=== PATIENT | male | born 1995 | race Caucasian/White ===

== ENCOUNTER 2024-06-21 11:45 | Outpatient (AMB) | payer OTHER, SELFPAY ==
--- NOTE | 2024-06-21 11:48 | AM.OFFWIN_ITS ---
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 While every effort has been made to ensure accuracy, hotel services sales representative errors may have been included. The patient is a 29 year old male who presents to the clinic today with intermittent bilateral hand rash with swelling for the past 2 weeks, occurring in the morning. He denies fever, chills, cough, shortness of breath, injury to the area, any new soaps, lotions, perfumes, foods. He does note that he got a new blanket and did not wash it 1st, and did get this from [employer]. The area is described as red and blotchy, not itchy, or painful. He has not tried anything to make it better, as the symptoms seemed to resolve on their own as the day progresses. He does note that his mother has an autoimmune disorder, vitiligo. [facility]END[facility] S[facility] TO [facility] Social History Patient Tobacco Use Status: Current someday Tobacco user Review of Systems Const All systems reviewed & are unremarkable except as noted in HPI and below Physical Exam Vital Signs: Last Vital Signs Pulse 70 06/21/24 11:49 BP 110/78 06/21/24 11:49 Pulse Ox 98 06/21/24 11:49 Oxygen Delivery Method Room Air 06/21/24 11:49 Const General: cooperative, healthy appearing, comfortable, no acute distress and alert Orientation/consciousness: patient oriented x3 Limitations: no limitations Neck Neck: Yes normal visual inspection and Yes full ROM Resp Effort & Inspection: normal respiratory effort and able to speak in complete sentences Auscultation: clear to auscultation bilaterally Cardio Jugular venous distension: no JVD Palpation: normal PMI Rate: regular rate Heart sounds: S1 normal heart sound present, S2 normal heart sound present, no click, no gallops, no murmurs and no rubs Skin General skin exam: no rashes or lesions noted, elasticity normal and turgor normal Neuro General: patient oriented x3 Extrem Other: Full range of motion, in hands, wrists, elbows, shoulders. Distal neurovascular exam intact. Strength 5/5. General: Yes normal to inspection, Yes full ROM, Yes capillary refill normal and Yes normal exam except as noted Psych Appearance: grossly normal Mental Status: mental status grossly normal Speech and movement: Normal speech and movement present Affect: normal affect Assessment & Plan Assessment & Plan (1) Dermatitis: Code(s): L30.9 - Dermatitis, unspecified Plan: Etiology unclear. Advised patient to wash the blanket that he did obtain from [employer] as this may be an allergic response. We will try famotidine, Zyrtec for antihistamine properties, as well as prednisone burst. Advised patient to follow up with PCP with worsening symptoms or failure to resolve. Plan See above for full details and plan. Medications: New prednisone 40 mg (2 x 20 mg) PO DAILY 5 days 10 tabs 0RF Coding Level of Care Code Est Pt Level 3 (15763) Diagnoses Dermatitis L30.9
[2024-06-21 11:49] VITALS: BP 110/78; PULSE 70; O2SAT 98
== END 2024-06-21 12:37 | disposition home or self-care (01) ==
PROVIDERS: PCP Pediatrics Pediatric Rheumatology; Visit Provider Registered Nurse
DX: L30.9 Dermatitis, unspecified (principal)

== ENCOUNTER → 2024-06-21 11:45 | Outpatient (BNVA) | payer OTHER, SELFPAY | PROVIDERS: PCP Pediatrics Pediatric Rheumatology; Visit Provider Registered Nurse | DX: L30.9 Dermatitis, unspecified (principal) | CPT/HCPCS: 99212 ==

== ENCOUNTER 2024-09-07 09:03 | Outpatient (AMB) | payer OTHER, SELFPAY ==
[2024-09-07 09:22] VITALS: BP 118/80; PULSE 67; TEMP 37; O2SAT 93
--- NOTE | 2024-09-07 09:22 | MHC.OFFWIV ---
Intake Vital Signs 09/07/24 09:22 09/07/24 10:10 Weight 178 lb BP 118/80 Blood Pressure Location Rt brachial Position Sitting Pulse 67 Pulse Source Pulse Oximeter Temp 98.6 F Temp Source Oral Pulse Oximetry (%) 93 96 Oxygen Delivery Method Room Air Intake Visit Reasons: EP-sinus congestion, fever, body ache, headaches Intake Note: Patient here for left ear pain, congestion, fever, body aches and headaches that has been present for about 1 week. Patient Tobacco Use Status: Current someday Tobacco user Allergies No Known Allergies Allergy (Verified 09/07/24 09:26) Do you need a note to return to daycare/school/sports/work: Yes HPI EP-sinus congestion, fever, body ache, headaches HPI Details This note is constructed using voice recognition software. While every effort has been made to ensure accuracy, cream ripener errors may have been included. The patient is a 29 year old male who presents to the clinic today with congestion, subjective fever, body aches, headaches, cough. He has been trying generic Mucinex for symptomatic management, which has helped some. He denies dyspnea, but does report that his lungs feel tight. He has been using his girlfriend's albuterol inhaler. He has had no known sick contacts the exception of his girlfriend whom he lives with who is also here for a sick visit for the same. He reports initially he had some nausea and vomiting, but that resolved after the 1st couple of days. [facility] Social History Patient Tobacco Use Status: Current someday Tobacco user Review of Systems Const All systems reviewed & are unremarkable except as noted in HPI and below Physical Exam Vital Signs: Last Vital Signs Temp 98.6 F 09/07/24 09:22 Pulse 67 09/07/24 09:22 BP 118/80 09/07/24 09:22 Pulse Ox 93 09/07/24 09:22 Oxygen Delivery Method Room Air 09/07/24 09:22 Const General: cooperative, healthy appearing, comfortable and no acute distress Orientation/consciousness: patient oriented x3 Limitations: no limitations HEENT Head: Yes normal to inspection Ears: hearing grossly normal bilaterally, external ears normal and TM's normal bilaterally General nose exam: Normal external nose present, Normal nares present and No nasal discharge present Face and sinus: Yes normal facial exam and Yes sinuses nontender Mouth: Normal oral and palatal mucosa present and moist mucous membranes Throat: Yes tonsils normal, Yes uvula midline and Yes posterior oropharynx abnormal (Erythema) Eyes General: appearance normal, both eyes and all related structures Neck Neck: Yes normal visual inspection Resp Effort & Inspection: normal respiratory effort, able to speak in complete sentences, Actively coughing, no respiratory distress, not tachypneic, no tripod positioning and no use of accessory muscles Auscultation: rhonchi (With wheezing, but clears to cough.) Cardio Jugular venous distension: no JVD Rate: regular rate Rhythm: regular rhythm Heart sounds: S1 normal heart sound present, S2 normal heart sound present, no click, no gallops, no murmurs and no rubs Skin General skin exam: no rashes or lesions noted, elasticity normal and turgor normal Neuro General: patient oriented x3 Extrem General: Yes normal to inspection and Yes no clubbing, cyanosis or edema Assessment & Plan Assessment & Plan (1) URI (upper respiratory infection): Code(s): J06.9 - Acute upper respiratory infection, unspecified Qualifiers: URI type: unspecified URI Qualified Code(s): J06.9 - Acute upper respiratory infection, unspecified Plan: Viral swab obtained to rule out Covid, Influenza, and RSV based on symptoms. Advised mask wearing while symptomatic and quarantine per current CDC guidelines. Reviewed at home support methods including hydration, humidification, vix vapor rub, sinus rinse, and otc treatment options. Discussed treatment with antiviral therapy for covid with paxlovid and with Tamiflu for influenza, including appropriate use and side effects, and need to start medication within 5 day of symptom onset, preferably within 48 hours of symptom onset. Patient is outside of timeline for antiviral therapy. Albuterol inhaler sent for symptomatic management of wheeze. Advised follow up with worsening symptoms such as dyspnea at rest, which would require emergent evaluation. Plan See above for full details and plan. Orders: Orders SARS-CoV2/FLU/RSV Today J06.9 - Acute upper respiratory infection, unspecified Medications: New albuterol sulfate 90 mcg/actuation 1 - 2 puffs inhalation QID PRN 6.7 grams 0RF Shortness Of Breath Or Wheezing Coding Level of Care Code Est Pt Level 3 (31396) Diagnoses Upper respiratory tract infection, unspecified type J06.9 URI type: unspecified URI
[2024-09-07 10:10] VITALS: O2SAT 96
== END 2024-09-07 10:09 | disposition home or self-care (01) ==
PROVIDERS: PCP Pediatrics Pediatric Rheumatology; Visit Provider Registered Nurse
DX: J06.9 Acute upper respiratory infection, unspecified (principal)

== ENCOUNTER 2024-09-07 09:03 | Outpatient (REF) | payer OTHER, SELFPAY ==
[2024-09-07 14:26] LABS: Influenza A PCR NEGATIVE (Negative); Influenza B PCR NEGATIVE (Negative); Resp Syncy Virus RNA Qual PCR NEGATIVE (Negative); SARS COV2 PCR INHOUSE NEGATIVE (Negative)
== END 2024-09-07 09:04 | disposition home or self-care (01) ==
LOC: HO.LAB 09:03
PROVIDERS: PCP Pediatrics Pediatric Rheumatology; Visit Provider Registered Nurse
DX: J06.9 Acute upper respiratory infection, unspecified (principal)
CPT/HCPCS: 0241U; 99212

== ENCOUNTER 2024-09-12 09:00 | Outpatient (AMB) | payer OTHER, SELFPAY ==
--- NOTE | 2024-09-12 09:07 | MHC.OFFWIV ---
Intake Vital Signs 09/12/24 09:09 Height 5 ft 7 in Weight 179 lb BMI 28.0 BP 96/60 Blood Pressure Location Lt brachial Position Sitting Pulse 93 Pulse Source Pulse Oximeter Temp 98.0 F Temp Source Oral Pulse Oximetry (%) 98 Oxygen Delivery Method Room Air Intake Visit Reasons: EP-hives, body parts swollen Intake Note: Pt is here today c/o rash Patient Tobacco Use Status: Current someday Tobacco user Allergies No Known Allergies Allergy (Verified 09/12/24 09:12) HPI HPI Comments History of Present Illness Details He presents to office with hives and hand swelling Occured since this am He denies anything new/new exposures. Works in a [employer] so unsure if dust No allergies known + hands swollen, R eyebrow Noticed some redness to skin on arms ad wrists He took Benadryl last night because he felt that top lip was swollen No SOB, chest tightness, throat tightness No fever or chills He said this has happened before and is usually when he gets sick Was seen last week for illness, + URI (? norovirus) He said cough is lingering but breathing improved No other complaints PFSH Social History Patient Tobacco Use Status: Current someday Tobacco user Review of Systems Const Denies body aches, Denies chills, Denies fever(s), Denies headache(s) and Denies weakness Eyes Denies blurry vision ENT Denies dizziness, Denies otalgia, Denies headache(s), Reports nasal discharge, Denies sore throat, Denies throat swelling and Denies tongue swelling Card Denies chest pain and Denies dyspnea Resp Reports chest congestion, Reports cough, Denies hemoptysis and Denies dyspnea GI Denies vomiting Musc Reports joint swelling (feels like hands are swollen) Skin/Breast Reports pruritus and Reports rash Neuro Denies dizziness, Denies headache(s) and Denies weakness Aller/Immun Denies throat swelling and Denies tongue swelling Physical Exam Vital Signs: Last Vital Signs Temp 98.0 F 09/12/24 09:09 Pulse 93 09/12/24 09:09 BP 96/60 09/12/24 09:09 Pulse Ox 98 09/12/24 09:09 Oxygen Delivery Method Room Air 09/12/24 09:09 BMI result Body Mass Index 28.0 General: Non-toxic, NAD. Speaking full sentences. Handling secretions Skin: Warm dry throughout. There is slightly raised small patches of erythema to bilateral writs and ventral aspects of forearms. No other erythema noted to face, neck, back, chest or remainder of upper extremities, There is slight edema noted to bilateral hands without extension to wrist/forearm. There is no obvious edema to eyebrown or periorbital region. No lip edema Eye: EOMI HENT: Airway patent. Uvula midline. No pharyngeal erythema or edema. No HAND SPRING FORMER. Respiratory: No respiratory distress or stridor. + wheeze bilaterally without rhonchi or rales. No accessory muscle use Cardiac: RRR. No murmur MSK: Full ROM extremities. Neurology: Alert. No aphasia or facial droop. Gait without abnormality Psych: Good mood and affect Assessment & Plan Assessment & Plan (1) Urticaria: Code(s): L50.9 - Urticaria, unspecified Plan: Patient seen and evaluated. He is non-toxic appears, speaking in full sentences without respiratory distress or oral edema No sign of anaphylaxis He was instructed to take prednisone with food, avoiding alcohol and nsaids He was also told to take benadryl which may make him sleepy Discussed warning sings that warrant ER evaluaton; throat tightness, continual/worsening hives, dizziness, CP, SOB etc Patient and girlfriend gave verbal understanding and had no additional questions or concerns at time of discharge All questions answered (2) Upper respiratory infection: Code(s): J06.9 - Acute upper respiratory infection, unspecified Qualifiers: URI type: unspecified viral URI Qualified Code(s): J06.9 - Acute upper respiratory infection, unspecified Plan: prednisone will help F/U with PCP or go to ER if worse Medications: New prednisone Take 60mg po qd x 3 days, then 40mg po qd x 3 days, then 20mg po qd x 3 days 20 mg PO DAILY 18 tabs 0RF Coding Level of Care Code Est Pt Level 3 (79867) Diagnoses Urticaria L50.9 Viral upper respiratory tract infection J06.9 URI type: unspecified viral URI
[2024-09-12 09:09] VITALS: BP 96/60; PULSE 93; TEMP 36.7; O2SAT 98; BMI 28.0
== END 2024-09-12 09:56 | disposition home or self-care (01) ==
PROVIDERS: PCP Pediatrics Pediatric Rheumatology; Visit Provider Physician Assistant
DX: L50.9 Urticaria, unspecified (principal); J06.9 Acute upper respiratory infection, unspecified

== ENCOUNTER → 2024-09-12 09:00 | Outpatient (BNVA) | payer OTHER, SELFPAY | PROVIDERS: PCP Pediatrics Pediatric Rheumatology; Visit Provider Physician Assistant | DX: L50.9 Urticaria, unspecified (principal); J06.9 Acute upper respiratory infection, unspecified | CPT/HCPCS: 99212 ==

== ENCOUNTER 2025-02-06 08:27 | Outpatient (AMB) | payer OTHER, SELFPAY ==
--- NOTE | 2025-02-06 08:31 | MHC.OFFWIV ---
Intake Vital Signs 02/06/25 08:34 Weight 162 lb BP 90/64 Blood Pressure Location Rt brachial Position Sitting Pulse 67 Pulse Source Pulse Oximeter Temp 97.9 F Temp Source Oral Pulse Oximetry (%) 97 Oxygen Delivery Method Room Air Intake Visit Reasons: EP cough, mucus, aches, fever, lung pain Intake Note: Patient here for cough, food doesn't taste the same, chills, lump pain, mucus and body aches that has been present for a couple of days. Patient Tobacco Use Status: Current someday Tobacco user Allergies No Known Allergies Allergy (Verified 02/06/25 08:37) Do you need a note to return to daycare/school/sports/work: Yes HPI HPI Comments History of Present Illness Details History of Present Illness The patient is a 29-year-old male presenting with respiratory symptoms which began this am. He describes recent onset of subjective fever, body aches, runny nose, congestion, and cough. He states that it intensified this morning, linked to an irritated feeling in the lungs and sensing fluid. Some relief followed from expelling mucus. Additionally, the patient reports generalized body soreness, attributed in part to his pre-existing arthritis, with distinct swelling noticed in individual joints. Ear pain was also experienced when cleaning the ear, which did not appear to be infected upon examination. A decline in appetite with an unusual loss of taste has accompanied these symptoms. 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 He smokes marijuana, potentially influencing his current respiratory symptoms. He also lives with his girlfriend who has similar symptoms. He denies JALLOH, CP, SOB, abd pain, n/v/d, travel or sick contacts. Physical Exam General: Cooperative, healthy appearing, comfortable, no acute distress and well developed Head: Normal to inspection Ears: Hearing grossly normal bilaterally. Redness noted in the ear canals and TMs are normal bilaterally. Nose: Normal external nose present Face and sinus: Normal facial exam, no sinus pain or pressure Neck: Normal visual inspection and Yes full ROM. No lymphadenopathy noted. Respiratory: Normal respiratory effort, able to speak in complete sentences. No w/r/r noted. Cardiovascular: Regular rate and rhythm. Normal S1 and S2 GI: Normal to inspection. Soft to palpation and nontender Skin: No rashes or lesions noted Patient was informed and verbally consented to the use of an ambient scribe for clinic note documentation during this visit. [facility] Social History Patient Tobacco Use Status: Current someday Tobacco user Review of Systems Const All systems reviewed & are unremarkable except as noted in HPI and below Physical Exam Vital Signs: Last Vital Signs Temp 97.9 F 02/06/25 08:34 Pulse 67 02/06/25 08:34 BP 90/64 02/06/25 08:34 Pulse Ox 97 02/06/25 08:34 Oxygen Delivery Method Room Air 02/06/25 08:34 Assessment & Plan Assessment & Plan (1) Upper respiratory infection: Code(s): J06.9 - Acute upper respiratory infection, unspecified Qualifiers: URI type: unspecified viral URI Qualified Code(s): J06.9 - Acute upper respiratory infection, unspecified Plan Most likely URI vs covid vs flu vs RSV Plan -tylenol or motrin as needed for pain or fever -drink lots of fluids -offered him a covid test and he refused due to cost -flonase, zyrtec, and cough medicine as needed -diet as tolerated -work note given -f/u with PCP Medications: New guaifenesin 200 mg (10 mL) PO Q4H 7 days PRN 473 mL 0RF cough fluticasone propionate 50 mcg/actuation administer into each nostril 1 spray intranasal Q12H 16 grams 0RF cetirizine (All Day Allergy (cetirizine)) 10 mg PO DAILY 7 days PRN 7 tabs 0RF allergy symptoms Coding Level of Care Code Est Pt Level 3 (92994) Diagnoses Viral upper respiratory tract infection J06.9 URI type: unspecified viral URI
[2025-02-06 08:34] VITALS: BP 90/64; PULSE 67; TEMP 36.6; O2SAT 97
== END 2025-02-06 09:43 | disposition home or self-care (01) ==
PROVIDERS: PCP Pediatrics Pediatric Rheumatology; Visit Provider Physician Assistant Medical
DX: J06.9 Acute upper respiratory infection, unspecified (principal)

== ENCOUNTER → 2025-02-06 08:27 | Outpatient (BNVA) | payer OTHER, SELFPAY | PROVIDERS: PCP Pediatrics Pediatric Rheumatology; Visit Provider Physician Assistant Medical | DX: J06.9 Acute upper respiratory infection, unspecified (principal) | CPT/HCPCS: 99212 ==

== ENCOUNTER 2025-03-05 14:39 | Outpatient (REF) | payer OTHER, SELFPAY ==
--- NOTE | ~2025-03-05 | XR_ITS ---
EXAMINATION: XR CHEST CLINICAL INFORMATION: R05.2 - Subacute cough COMPARISON: None available. TECHNIQUE: 2 views of the chest were obtained. FINDINGS: Heart and mediastinal contours are within normal limits. Pulmonary vascularity is unremarkable. Lungs are clear and well expanded. There is no sign of pleural effusion. No bony abnormality is apparent. XR/XR chest 2V IMPRESSION: No acute disease Electronically signed by: Raudel Cook MD 03/05/2025 03:42 PM EDT
== END 2025-03-05 14:40 | disposition home or self-care (01) ==
LOC: HO.HMGCX 14:39
PROVIDERS: PCP Pediatrics Pediatric Rheumatology; Visit Provider Nurse Practitioner Family
DX: R05.2 Subacute cough (principal); J06.9 Acute upper respiratory infection, unspecified; F17.200 Nicotine dependence, unspecified, uncomplicated
CPT/HCPCS: 71046; 94640; 99212

== ENCOUNTER → 2025-03-05 14:39 | Outpatient (AMB) | payer OTHER, SELFPAY ==
[2025-03-05 14:49] VITALS: BP 102/58; PULSE 80; TEMP 36.9; O2SAT 95; BMI 25.1
--- NOTE | 2025-03-05 14:49 | AM.OFFWIN_ITS ---
Intake Vital Signs 03/05/25 14:49 Height 5 ft 7 in Weight 160 lb 8 oz BMI 25.1 BP 102/58 L Blood Pressure Location Lt brachial Position Sitting Pulse 80 Pulse Source Pulse Oximeter Temp 98.4 F Temp Source Oral Pulse Oximetry (%) 95 Oxygen Delivery Method Room Air Intake Visit Reasons: EP-phlegm, cough, sore throat Intake Note: Patient present with a cough that is productive, today phlegm is green. Sore throat due to cough Patient Tobacco Use Status: Current someday Tobacco user Business Proposal Rep Required: No Allergies No Known Allergies Allergy (Verified 03/05/25 14:53) Do you need a note to return to daycare/school/sports/work: Yes HPI HPI Comments History of Present Illness Details 2 y/o Male patient who presents to the [facility] in clinic with c/o Productive cough that started yesterday associated with generalized body aches and fatigue. His GF with similar symptoms at home. [facility] Medical History (Updated 03/05/25 @ 15:09 by Elvi Hodge NP) Acute respiratory disease Cough Social History Patient Tobacco Use Status: Current someday Tobacco user Review of Systems Const All systems reviewed & are unremarkable except as noted in HPI and below Physical Exam Vital Signs: Last Vital Signs Temp 98.4 F 03/05/25 14:49 Pulse 80 03/05/25 14:49 BP 102/58 L 03/05/25 14:49 Pulse Ox 95 03/05/25 14:49 Oxygen Delivery Method Room Air 03/05/25 14:49 BMI result Body Mass Index 25.1 Const General: no acute distress Nutritional Appearance: well nourished Orientation/consciousness: patient oriented x3 HEENT Head: Yes normocephalic Ears: external ears normal and TM abnormal bulging bilateral, erythematous on the right and with fluid behind the TM bilateral General nose exam: Normal external nose present Face and sinus: Yes sinuses nontender Mouth: moist mucous membranes and Abnormal oral and palatal mucosa present erythematous Throat: Yes uvula midline Resp Effort & Inspection: normal respiratory effort and able to speak in complete sentences Auscultation: no crackles, no rales, rhonchi upper bilaterally and lower bilaterally and wheezes scattered wheezes Neuro General: patient oriented x3 Psych Speech and movement: Normal speech and movement present Office Procedures Nebulizer Treatment Nebulizer Treatment 89833-Jouodaemt/MDI RX initial, or Nebulizer Subsequent Treatment Office Meds ipratropium 0.5 mg-albuterol 3 mg (2.5 mg base)/3 mL nebulization soln Performing Provider: Elvi Hodge NP Performing Location: [facility] Administered by: Elvi Hodge NP on 03/05/25 15:23 Dose Route Admin Location Dispensed Lot Number Expiration Date [facility] Turn Sewer 3 mL inhalation 3 mL 11/03/25 94750-084-22 AHP Assessment & Plan Assessment & Plan (1) Cough: Code(s): R05.9 - Cough, unspecified Qualifiers: Cough type: subacute Qualified Code(s): R05.2 - Subacute cough Plan: Ordered Neb in Office Ordered chest Xray to r/o Pneumonia Ordered SARs to r/o COVID/Flu/RSV Ordered Prednisone, and Z-pack. Orders: Orders XR chest 2V Today R05.2 - Subacute cough SARS-CoV2/FLU/RSV Today J06.9 - Acute upper respiratory infection, unspecified AMB Nebulizer Treatment Today J06.9 - Acute upper respiratory infection, unspecified, R05.2 - Subacute cough Medications: New prednisone 50 mg PO DAILY 5 tabs 0RF 5 days J06.9 - Acute upper respiratory infection, unspecified, R05.2 - Subacute cough benzonatate 200 mg (2 x 100 mg) PO BID 60 caps 0RF J06.9 - Acute upper respiratory infection, unspecified, R05.2 - Subacute cough azithromycin 500 mg PO DAILY 3 tabs 0RF 3 days J06.9 - Acute upper respiratory infection, unspecified, R05.2 - Subacute cough Coding Level of Care Code Est Pt Level 4 (17514) Diagnoses Subacute cough R05.2 Cough type: subacute CPT Codes Nebulizer Treatment - Nebulizer Treatment, initial or subsequent: 78499- Nebulizer/MDI RX initial, or Nebulizer Subsequent Treatment ([id number]) Time Spent (min) 20
== END ==
PROVIDERS: PCP Pediatrics Pediatric Rheumatology; Visit Provider Nurse Practitioner Family
DX: R05.2 Subacute cough (principal); J06.9 Acute upper respiratory infection, unspecified

== ENCOUNTER 2025-03-05 15:09 | Outpatient (REF) | payer OTHER, SELFPAY ==
[2025-03-05 19:03] LABS: Influenza A PCR NEGATIVE (Negative); Influenza B PCR NEGATIVE (Negative); Resp Syncy Virus RNA Qual PCR NEGATIVE (Negative); SARS COV2 PCR INHOUSE NEGATIVE (Negative)
== END 2025-03-05 15:10 | disposition home or self-care (01) ==
LOC: HO.LAB 15:09
PROVIDERS: Visit Provider Nurse Practitioner Family
DX: J06.9 Acute upper respiratory infection, unspecified (principal)
CPT/HCPCS: 87637

== ENCOUNTER → 2025-03-05 15:10 | Outpatient (BNV) | payer OTHER, SELFPAY | PROVIDERS: PCP Pediatrics Pediatric Rheumatology; Visit Provider Radiology Diagnostic Radiology | DX: R05.2 Subacute cough (principal) | CPT/HCPCS: 71046 ==